=== PATIENT | male | born 1965 | race Caucasian/White ===

== ENCOUNTER 2019-09-14 02:06 | Inpatient (IN) ==
[2019-09-14] MEDS ORDERED: *HR* Dextrose 50 % in Water (Vial) 50 ML VIAL IVP ONE (02:33)
[2019-09-14] MEDS ORDERED: D5% in 0.45% NACL 1,000 ML IVC SCH ×2 (02:45→04:31)
[2019-09-14 03:04] LABS: Basophils % 0.2 %; Eosinophils # 0.1 K/mcL (0.0-0.6); Hematocrit 37.4 % (37.5-50.1); Hemoglobin 12.5 g/dL (12.9-16.9); Immature Granulocytes % 0.3 % (0-4); Lymphocytes # 2.7 K/mcL (0.6-4.6); Lymphocytes % 25.4 %; Mean Corpuscular HGB Conc 33.4 g/dL (31.6-35.5); Mean Corpuscular Hemoglobin 33.5 pg (28.0-33.3); Mean Corpuscular Volume 100.3 fL (83.0-100.0); Mean Platelet Volume 10.9 fL (9.4-12.4); Monocytes % 9.4 %; Neutrophils # 6.7 K/mcL (1.6-8.9); Platelet Count 230 K/mcL (140-400); Red Blood Count 3.73 M/mcL (4.19-5.50); Segmented Neutrophils % 63.7 %; White Blood Count 10.5 K/mcL (4.3-11.1)
[2019-09-14 03:23] LABS: BUN/Creatinine Ratio 19 (6-26); Blood Urea Nitrogen 15 mg/dL (6-20); Calcium 9.4 mg/dL (8.6-10.3); Carbon Dioxide 27 mEq/L (23-29); Chloride 107 mEq/L (98-107); Glucose 35 mg/dL (70-105); Osmolality,Calculated 287 (280-300); Potassium 3.7 mEq/L (3.5-5.1); Sodium 140 mEq/L (136-145); eGFR For African Americans > 60 (> 60); eGFR For Non-African Americans > 60 (> 60)
[2019-09-14] MEDS ORDERED: Naloxone 0.4 MG/ML INJ IVP PRN (04:31)
[2019-09-14] MEDS: D5% in 0.9% NACL 1,000 ML IVC SCH ×2 (05:57→16:32)
[2019-09-14] MEDS: Multivit/Ca/Min/Fe/FA 1 TAB TABLET PO SCH (09:02)
[2019-09-14] MEDS: Gabapentin 300 MG CAPSULE PO SCH ×4 (09:03→21:19)
[2019-09-14] MEDS: Aspirin Enteric Coated 81 MG Tablet PO SCH (09:03)
[2019-09-14] MEDS: Acetaminophen 325 MG TABLET PO PRN ×2 (10:25→16:35)
[2019-09-14 12:02] LABS: BUN/Creatinine Ratio 18 (6-26); Blood Urea Nitrogen 11 mg/dL (6-20); Calcium 9.1 mg/dL (8.6-10.3); Carbon Dioxide 23 mEq/L (23-29); Chloride 111 mEq/L (98-107); Glucose 44 mg/dL (70-105); Osmolality,Calculated 286 (280-300); Sodium 140 mEq/L (136-145); eGFR For African Americans > 60 (> 60); eGFR For Non-African Americans > 60 (> 60)
[2019-09-14] MEDS: *HR* OxyCODONE/APAP 5/325 TABLET PO PRN ×2 (13:30→21:20)
[2019-09-14 14:09] LABS: Estimated Average Glucose 157 mg/dl
[2019-09-14 18:25] LABS: Alanine Aminotransferase 13 Units/L (7-52); Albumin 3.5 g/dL (3.5-5.7); Albumin/Globulin Ratio 1.8 (1.1-2.2); Alkaline Phosphatase 48 Units/L (34-104); Aspartate Amino Transferase 16 Units/L (13-39); BUN/Creatinine Ratio 13 (6-26); Bilirubin,Total 0.3 mg/dL (0.3-1.0); Blood Urea Nitrogen 11 mg/dL (6-20); Calcium 8.1 mg/dL (8.6-10.3); Carbon Dioxide 22 mEq/L (23-29); Chloride 110 mEq/L (98-107); Glucose 169 mg/dL (70-105); Lipase 16 Units/L (11-82); Magnesium 1.9 mg/dL (1.6-2.6); Osmolality,Calculated 285 (280-300); Potassium 4.2 mEq/L (3.5-5.1); Sodium 136 mEq/L (136-145); Total Protein 5.5 g/dL (6.4-8.9); eGFR For African Americans > 60 (> 60); eGFR For Non-African Americans > 60 (> 60)
[2019-09-15] MEDS: Acetaminophen 325 MG TABLET PO PRN (00:26)
[2019-09-15] MEDS: D5% in 0.9% NACL 1,000 ML IVC SCH ×3 (00:26→17:26)
[2019-09-15] MEDS: *HR* OxyCODONE/APAP 5/325 TABLET PO PRN ×4 (03:20→21:53)
[2019-09-15 05:42] LABS: BUN/Creatinine Ratio 14 (6-26); Blood Urea Nitrogen 9 mg/dL (6-20); Calcium 7.8 mg/dL (8.6-10.3); Carbon Dioxide 24 mEq/L (23-29); Chloride 113 mEq/L (98-107); Glucose 97 mg/dL (70-105); Osmolality,Calculated 291 (280-300); Potassium 3.7 mEq/L (3.5-5.1); Sodium 141 mEq/L (136-145); eGFR For African Americans > 60 (> 60); eGFR For Non-African Americans > 60 (> 60)
[2019-09-15] MEDS: Aspirin Enteric Coated 81 MG Tablet PO SCH (08:05)
[2019-09-15] MEDS: Gabapentin 300 MG CAPSULE PO SCH ×4 (08:06→20:44)
[2019-09-15] MEDS: Multivit/Ca/Min/Fe/FA 1 TAB TABLET PO SCH (08:06)
[2019-09-15 14:45] LABS: Thyroid Stimulating Hormone 1.451 mcIU/mL (0.340-5.600)
[2019-09-16] MEDS: D5% in 0.9% NACL 1,000 ML IVC SCH ×2 (02:12→10:33)
[2019-09-16] MEDS: *HR* OxyCODONE/APAP 5/325 TABLET PO PRN ×4 (04:03→21:31)
[2019-09-16] MEDS: Gabapentin 300 MG CAPSULE PO SCH ×4 (08:08→21:31)
[2019-09-16] MEDS: Multivit/Ca/Min/Fe/FA 1 TAB TABLET PO SCH (08:08)
[2019-09-16] MEDS: Aspirin Enteric Coated 81 MG Tablet PO SCH (08:08)
[2019-09-16] MEDS: D5% in 0.45% NACL 1,000 ML IVC SCH ×2 (11:25→21:31)
[2019-09-17] MEDS: *HR* OxyCODONE/APAP 5/325 TABLET PO PRN ×2 (04:05→10:28)
[2019-09-17 05:34] LABS: Basophils # 0.1 K/mcL (0.0-0.2); Basophils % 0.6 %; Eosinophils # 0.3 K/mcL (0.0-0.6); Eosinophils % 3.5 %; Immature Granulocytes % 0.2 % (0-4); Lymphocytes # 2.7 K/mcL (0.6-4.6); Lymphocytes % 33.2 %; Mean Corpuscular HGB Conc 32.4 g/dL (31.6-35.5); Mean Corpuscular Hemoglobin 32.6 pg (28.0-33.3); Mean Corpuscular Volume 100.5 fL (83.0-100.0); Mean Platelet Volume 11.3 fL (9.4-12.4); Monocytes # 0.8 K/mcL (0.0-1.3); Monocytes % 10.4 %; Neutrophils # 4.2 K/mcL (1.6-8.9); Platelet Count 197 K/mcL (140-400); Red Blood Count 3.68 M/mcL (4.19-5.50); Red Cell Distribution Width 12.8 % (11.5-14.5); Segmented Neutrophils % 52.1 %; White Blood Count 8.1 K/mcL (4.3-11.1)
[2019-09-17 05:57] LABS: Alanine Aminotransferase 19 Units/L (7-52); Albumin 3.6 g/dL (3.5-5.7); Albumin/Globulin Ratio 1.8 (1.1-2.2); Alkaline Phosphatase 59 Units/L (34-104); Aspartate Amino Transferase 21 Units/L (13-39); BUN/Creatinine Ratio 17 (6-26); Bilirubin,Total 0.3 mg/dL (0.3-1.0); Blood Urea Nitrogen 11 mg/dL (6-20); Calcium 8.3 mg/dL (8.6-10.3); Carbon Dioxide 26 mEq/L (23-29); Chloride 109 mEq/L (98-107); Glucose 210 mg/dL (70-105); Osmolality,Calculated 294 (280-300); Potassium 4.2 mEq/L (3.5-5.1); Sodium 139 mEq/L (136-145); Total Protein 5.6 g/dL (6.4-8.9); eGFR For African Americans > 60 (> 60); eGFR For Non-African Americans > 60 (> 60)
[2019-09-17] MEDS: Aspirin Enteric Coated 81 MG Tablet PO SCH (07:54)
[2019-09-17] MEDS: Gabapentin 300 MG CAPSULE PO SCH (07:55)
[2019-09-17] MEDS: Multivit/Ca/Min/Fe/FA 1 TAB TABLET PO SCH (07:55)
[2019-09-17 12:27] VITALS: BP 143/86
== END 2019-09-17 13:36 | disposition home or self-care (01) | DRG 639 ==
LOC: EMEROOGRE 02:06 → INPGRE 02:06 → SUATTDRO 03:41 → INPGRE 04:31
PROVIDERS: ADMIT Family Medicine; ATTEND Family Medicine